=== PATIENT | female | born 1995 | race Caucasian/White ===

== ENCOUNTER → 2017-06-07 | Outpatient (CLI) | payer OTHER ==
[2017-06-07 17:41] LABS: FREE T4 0.79 NG/DL (0.76-1.46)
[2017-06-09 10:00] LABS: THYROID PEROXIDASE ANTIBODY > 1300.0 U/ML (<60.0)
== END ==
LOC: M LAB 16:17
DX: R23.0 Cyanosis (principal); R94.6 Abnormal results of thyroid function studies
CPT/HCPCS: 84443

== ENCOUNTER → 2017-08-05 | Outpatient (CLI) | payer OTHER ==
[2017-08-05 17:52] LABS: THYROID STIMULATING HORMONE 0.095 uIU/ML (0.358-3.740)
== END ==
LOC: M SMT 11:30
DX: E03.9 Hypothyroidism, unspecified (principal)
CPT/HCPCS: 84443

== ENCOUNTER → 2018-01-11 | Outpatient (REF) | payer OTHER ==
[2018-01-11 21:01] LABS: CHLAMYDIA DNA AMPLIFICATION NEGATIVE (NEGATIVE); GC DNA AMPLIFICATION NEGATIVE (NEGATIVE)
== END ==
LOC: M LAB REF 17:24
DX: Z11.3 Encounter for screening for infections with a predominantly sexual mode of transmission (principal)

== ENCOUNTER → 2018-02-10 | Outpatient (CLI) | payer OTHER ==
[2018-02-10 15:04] LABS: THYROID STIMULATING HORMONE 0.937 uIU/ML (0.358-3.740)
== END ==
LOC: M SMT 11:14
DX: E03.9 Hypothyroidism, unspecified (principal)
CPT/HCPCS: 84443

== ENCOUNTER → 2019-10-24 | Outpatient (CLI) | payer OTHER ==
[2019-12-08 20:42] LABS: FREE T4 1.16 NG/DL (0.76-1.46); THYROID STIMULATING HORMONE 1.13 uIU/ML (0.358-3.740)
== END ==
LOC: M LAB 12:00
PROVIDERS: ATTEND Nurse Practitioner Family
DX: E06.3 Autoimmune thyroiditis (principal)

== ENCOUNTER → 2019-12-08 | Outpatient (CLI) | payer OTHER ==
--- NOTE | 2019-12-13 10:07 | REP ---
RIGHT HIP SERIES HISTORY: Pain. TECHNIQUE: Two views of the right hip are performed. FINDINGS: There is no evidence of acute fracture, dislocation, or intrinsic bone disease. I do not see significant arthritic change at the hip joint. IMPRESSION: Essentially negative right hip series. MTDD
--- NOTE | 2019-12-13 10:08 | REP ---
LUMBOSACRAL SPINE SERIES HISTORY: Low back pain. TECHNIQUE: Five views of the lumbosacral spine are performed. FINDINGS: There is no compression fracture. Vertebral bodies are normal in height and are well aligned with normal lumbar lordosis. No significant degenerative disc changes are seen. Posterior elements are intact. IMPRESSION: Essentially negative lumbosacral spine series. MTDD
--- NOTE | 2019-12-13 10:09 | REP ---
BILATERAL RIB SERIES HISTORY: Pleurodynia. Pain. TECHNIQUE: Four views of the bilateral ribs are performed. FINDINGS: No fracture or bone lesion is seen. An accompanying view of the chest demonstrates no acute infiltrate. Heart and mediastinum are within normal limits. IMPRESSION: Negative bilateral rib series. MTDD
== END ==
LOC: M RAD 10:24
PROVIDERS: ATTEND Family Medicine
DX: R07.81 Pleurodynia (principal); M54.5 Low back pain; M25.551 Pain in right hip